=== PATIENT | female | born 1990 | race Caucasian/White ===

== ENCOUNTER 2023-02-07 09:10 | Emergency (ER) | payer BC, SELFPAY ==
[2023-02-07] MEDS ORDERED: Sodium Chloride 0.9% 1,000 ML IV ONE (09:31)
[2023-02-07] MEDS ORDERED: Ketorolac 30 MG/ML SDV IVPUSH ONE (09:31)
[2023-02-07] MEDS ORDERED: Ondansetron 4 MG/2 ML SDV IVPUSH ONE (09:45)
[2023-02-07 09:58] LABS: BASOPHILS ABSOLUTE AUTO 0.01 K/mm3 (0.01-0.08); BASOPHILS PERCENT AUTO 0.1 % (0.1-1.2); EOSINOPHILS ABSOLUTE AUTO 0.02 K/mm3 (0.04-0.36); EOSINOPHILS PERCENT AUTO 0.2 (0.7-5.8); HEMOGLOBIN 12.9 gm/dl (11.2-15.7); IMMATURE GRAN ABSOLUTE AUTO 0.02 K/mm3 (0.00-0.10); IMMATURE GRAN PERCENT AUTO 0.2 % (<=1.0); LYMPHOCYTES ABSOLUTE AUTO 0.71 K/mm3 (1.18-3.74); LYMPHOCYTES PERCENT AUTO 7.3 % (19.3-51.7); MEAN CORPUSCULAR HGB CONC 33.1 g/dl (32.2-35.5); MEAN CORPUSCULAR VOLUME 84.8 fl (79.4-94.8); MEAN PLATELET VOLUME 9.3 fl (9.4-12.3); MONOCYTES ABSOLUTE AUTO 0.88 K/mm3 (0.24-0.36); MONOCYTES PERCENT AUTO 9.1 % (4.7-12.5); NEUTROPHILS ABSOLUTE AUTO 8.04 K/mm3 (1.56-6.13); NEUTROPHILS PERCENT AUTO 83.1 % (34.0-71.1); PLATELET COUNT,PLT 250 K/mm3 (182-369); WHITE BLOOD CELL COUNT,WBC 9.68 K/mm3 (3.98-10.04)
[2023-02-07 10:08] LABS: A/G RATIO 0.7 (1-2); ALBUMIN 3.1 g/dl (3.4-5.0); ANION GAP 13.5 (5-15); BILIRUBIN TOTAL 1.3 mg/dL (0.2-1.0); BUN/CREATININE RATIO 6.3 (14-18); CALCIUM 8.9 mg/dL (8.5-10.1); CREATININE 0.8 mg/dL (0.55-1.02); EST CRCL DRUG DOSING (CG) 92.68 mL/min; MAGNESIUM 1.6 mg/dL (1.8-2.4); POTASSIUM,K 3.5 mEq/L (3.5-5.1); PROTEIN TOTAL,TP 7.6 g/dl (6.4-8.2)
[2023-02-07] MEDS ORDERED: Magnesium Sulfate/Water 4 GM in Premix Bag 1 BAG IV ONE (10:29)
[2023-02-07] MEDS ORDERED: Tamsulosin 0.4 MG Cap.ER PO ONE (10:55)
[2023-02-07 11:27] LABS: APPEARANCE,URINE CLEAR (Clear); BILIRUBIN,URINE 1+ (Negative); COLOR,URINE YELLOW (Yellow); GLUCOSE,URINE NEGATIVE (Negative); KETONES,URINE 4+ (Negative); LEUKOCYTE ESTERASE,URINE TRACE (Negative); NITRITE,URINE NEGATIVE (Negative); OCCULT BLOOD,URINE TRACE-LYSED (Negative); PROTEIN,URINE 1+ (Negative)
[2023-02-07 11:44] LABS: BACTERIA,URINE FEW /hpf (FEW); RBC,URINE 0-5 /hpf (0-5); SQUAMOUS EPITHELIAL CELLS,UR 0-5 /hpf (0-5)
[2023-02-07 11:45] LABS: MUCUS,URINE FEW /hpf (FEW)
== END 2023-02-07 15:10 | disposition home or self-care (01) ==
LOC: JD.ED 09:10
DX: N23 Unspecified renal colic (principal)
CPT/HCPCS: 36415; 80053; 81001; 83735; 85025; 87086; 87088; 87186; 96361; 96365; 96366; 96375; 99283; J1885; J2405; J3475; J7030; 99284